=== PATIENT | female | born 1965 ===

== ENCOUNTER 2018-01-17 07:35 | Day surgery (SDC) | payer BC ==
[2018-01-16 13:46] VITALS: BMI 34.7
[2018-01-17 08:28] VITALS: TEMP 97.5
[2018-01-17] MEDS ORDERED: Lactated Ringer's 500 ML IV ONE (10:05)
[2018-01-17] MEDS ORDERED: Propofol 10 mg/ml Inj (20 ML) ONE ×2 (10:10)
[2018-01-17 12:14] VITALS: O2SAT 100
[2018-01-17 12:16] VITALS: BP 109/61; PULSE 57; RESP 21
== END 2018-01-17 11:40 | disposition home or self-care (01) ==
LOC: C.ENDO 07:35
PROVIDERS: ATTEND Internal Medicine Gastroenterology
DX: Z12.11 Encounter for screening for malignant neoplasm of colon (principal); K64.1 Second degree hemorrhoids; D12.3 Benign neoplasm of transverse colon
CPT/HCPCS: 45380; 82948; 84703; 88305; J2704; J7120